=== PATIENT | male | born 1955 | race Caucasian/White ===

== ENCOUNTER → 2019-05-28 07:22 | Outpatient (CLI) | payer SELFPAY ==
[2019-05-28 08:10] LABS: Add Manual Diff / Slide Review NO; Basophils Absolute Auto 0 /uL (0-100); Basophils Percent Auto 0.5 % (0-2); Eosinophils Absolute Auto 200 /uL (0-450); Eosinophils Percent Auto 4.6 % (2-4); Hematocrit 47.1 % (41-53); Hemoglobin 16.2 g/dL (13.5-17.5); Lymphocytes Absolute Auto 1400 /uL (1100-4500); Lymphocytes Percent Auto 28.5 % (25-40); Mean Corpuscular HGB Conc 34.5 % (30-36); Mean Corpuscular Hemoglobin 31.7 PG (26-34); Mean Corpuscular Volume 91.9 fL (80-100); Monocytes Absolute Auto 500 /uL (0-900); Monocytes Percent Auto 10.9 % (3-14); Neutrophils Absolute Auto 2700 /uL (1500-7000); Neutrophils Percent Auto 55.5 % (50-75); Platelet Count 225 X10^3/uL (150-400); Red Blood Cell Count 5.12 X10^6/uL (4.5-5.9); Red Cell Distribution Width 12.9 % (11.6-14.8); White Blood Cell Count 4.8 X10^3/uL (4.5-11.0)
[2019-05-28 09:01] LABS: Alanine Aminotransferase 37 IU/L (21-72); Albumin 4.5 g/dL (3.5-5.0); Alkaline Phosphatase 62 U/L (38-126); Aspartate Aminotransferase 30 IU/L (17-59); BUN Creatinine Ratio 14.6 (6-22); Bilirubin Total 0.8 mg/dL (0.2-1.3); Blood Urea Nitrogen 19 mg/dL (9-20); Calcium 9.7 mg/dL (8.4-10.2); Carbon Dioxide 29 mmol/L (22-32); Chloride 102 mmol/L (98-107); Estimated Glomerular Filt Rate 55.9 mL/min (>60); Globulin 2.3 g/dL (1.7-4.1); Glucose 104 mg/dL (80-110); HEMOLYSIS < 15 (0-50); Potassium 4.7 mmol/L (3.4-5.1); Sodium 141 mmol/L (137-145); Total Protein 6.8 g/dL (6.3-8.2)
[2019-05-28 09:30] LABS: Prostate Specific Antigen Scrn 1.49 ng/mL (0.1-4.0)
== END ==
PROVIDERS: PCP Family Medicine; Visit Provider Family Medicine
DX: Z00.00 Encounter for general adult medical examination without abnormal findings (principal)
CPT/HCPCS: 36415; 80053; 85025; G0103

== ENCOUNTER → 2020-12-22 08:44 | Outpatient (CLI) | payer OTHER, SELFPAY ==
[2020-12-22] MEDS: COVID-19 VACC #1, MRNA(MOD) 100 MCG/0.5 ML VIAL IM (08:49)
== END ==
PROVIDERS: PCP Family Medicine; Visit Provider Internal Medicine
DX: Z23 Encounter for immunization (principal)
CPT/HCPCS: 0011A; 91301

== ENCOUNTER → 2021-01-19 08:00 | Outpatient (CLI) | payer OTHER, SELFPAY ==
[2021-01-19] MEDS: COVID-19 VACC #2, MRNA(MOD) 100 MCG/0.5 ML VIAL IM (08:05)
== END ==
PROVIDERS: PCP Family Medicine; Visit Provider Internal Medicine
DX: Z23 Encounter for immunization (principal)
CPT/HCPCS: 0012A; 91301

== ENCOUNTER → 2021-12-19 07:01 | Outpatient (CLI) | payer MEDICARE, OTHER, SELFPAY ==
[2021-12-19 09:45] LABS: Add Manual Diff / Slide Review NO; Basophils Absolute Auto 0 /uL (0-100); Basophils Percent Auto 0.7 % (0-2); Eosinophils Absolute Auto 100 /uL (0-450); Eosinophils Percent Auto 2.9 % (2-4); Hematocrit 46.7 % (41-53); Hemoglobin 16.3 g/dL (13.5-17.5); Lymphocytes Absolute Auto 1400 /uL (1100-4500); Lymphocytes Percent Auto 32.5 % (25-40); Mean Corpuscular HGB Conc 34.9 % (30-36); Mean Corpuscular Volume 88.8 fL (80-100); Monocytes Absolute Auto 500 /uL (0-900); Monocytes Percent Auto 10.6 % (3-14); Neutrophils Absolute Auto 2300 /uL (1500-7000); Neutrophils Percent Auto 53.3 % (50-75); Platelet Count 184 X10^3/uL (150-400); Red Blood Cell Count 5.26 X10^6/uL (4.5-5.9); Red Cell Distribution Width 13.3 % (11.6-14.8); White Blood Cell Count 4.4 X10^3/uL (4.5-11.0)
[2021-12-19 10:15] LABS: Alanine Aminotransferase 25 IU/L (<50); Albumin 4.4 g/dL (3.5-5.0); Albumin Globulin Ratio 1.8 (1.0-2.8); Alkaline Phosphatase 59 U/L (38-126); Aspartate Aminotransferase 27 IU/L (17-59); BUN Creatinine Ratio 15.7 (6-22); Bilirubin Total 0.9 mg/dL (0.2-1.3); Blood Urea Nitrogen 19 mg/dL (9-20); Calcium 9.3 mg/dL (8.4-10.2); Carbon Dioxide 28 mmol/L (22-32); Chloride 105 mmol/L (98-107); Cholesterol 204 mg/dL (140-199); Estimated Glomerular Filt Rate > 60.0 mL/min (>60); Globulin 2.5 g/dL (1.7-4.1); Glucose 108 mg/dL (80-110); HDL Cholesterol 51 mg/dL (40-60); HEMOLYSIS < 15 (0-50); LDL Cholesterol Calculated 138 mg/dL (<100); Potassium 4.2 mmol/L (3.4-5.1); Sodium 138 mmol/L (137-145); Total Protein 6.9 g/dL (6.3-8.2); Triglycerides 77 mg/dL (35-150)
[2021-12-19 10:45] LABS: Prostate Specific Antigen Scrn 1.91 ng/mL (0.1-4.0)
[2021-12-22 15:25] LABS: Percent Free Testosterone 3.12 % (1.50-4.20); Testosterone Total 317.3 ng/dL (264.0-916.0)
== END ==
PROVIDERS: PCP Family Medicine; Referring Provider Family Medicine; Visit Provider Family Medicine
DX: E78.2 Mixed hyperlipidemia (principal); Z12.5 Encounter for screening for malignant neoplasm of prostate; N52.9 Male erectile dysfunction, unspecified
CPT/HCPCS: 36415; 80053; 80061; 84402; 84403; 85025; G0103

== ENCOUNTER → 2022-03-09 08:14 | Outpatient (CLI) | payer MEDICARE, OTHER, SELFPAY ==
[2022-03-09 09:49] LABS: Cholesterol 167 mg/dL (140-199); HDL Cholesterol 50 mg/dL (40-60); LDL Cholesterol Calculated 106 mg/dL (<100); Triglycerides 53 mg/dL (35-150)
== END ==
PROVIDERS: PCP Family Medicine; Referring Provider Family Medicine; Visit Provider Family Medicine
DX: E78.2 Mixed hyperlipidemia (principal)
CPT/HCPCS: 36415; 80061

== ENCOUNTER → 2023-06-21 08:12 | Outpatient (CLI) | payer MEDICARE, OTHER, SELFPAY ==
--- NOTE | 2023-06-21 08:13 | DI.US.S_ITS ---
PROCEDURE: US ABDOMEN COMPLETE INDICATIONS: LEFT MID ABDOMINAL PAIN TECHNIQUE: Real-time scanning was performed of the abdominal and retroperitoneal organs, with image documentation. COMPARISON: None. FINDINGS: Liver: Liver is normal in size and show increased liver parenchymal echotexture. Gallbladder: Gallbladder is within normal limits. Biliary ducts: Intrahepatic bile ducts are non-dilated. Extrahepatic bile duct caliber measures 5.1 mm. Normal is 6-7 mm or less in diameter, or 10 mm or less post-cholecystectomy. Pancreas: Visualized portions of the pancreas are sonographically normal. Spleen: Spleen is normal in size and homogeneous in echotexture. Kidneys: Kidneys are normal in size and echotexture. Right kidney measures 9.8 cm long; left kidney measures 11.2 cm long. Slightly lobulated left renal contour is seen. No hydronephrosis or nephrolithiasis. No solid masses. Aorta: Not well seen. Iliacs: Not well seen. IVC: Intrahepatic inferior vena cava is patent. Miscellaneous: No free abdominal fluid. Incidentally noted of possible fat containing partially reducible ventral hernia inferior to the umbilicus with the neck measures 7 x 8 mm in size. IMPRESSION: 1. Hepatic steatosis, no discrete hepatic lesion. 2. Incidentally noted of small in for umbilical ventral hernia containing fat only and is partially reducible. 3. Rest of the exam is unremarkable. Dictated by: Juan Huynh M.D. on 06/21/2023 at 9:39 Approved by: Juan Huynh M.D. on 06/21/2023 at 9:47
== END ==
PROVIDERS: PCP Family Medicine; Referring Provider Nurse Practitioner Family; Visit Provider Nurse Practitioner Family
DX: K76.0 Fatty (change of) liver, not elsewhere classified (principal); K42.9 Umbilical hernia without obstruction or gangrene; R10.12 Left upper quadrant pain
CPT/HCPCS: 76700

== ENCOUNTER → 2023-10-07 08:05 | Outpatient (CLI) | payer MEDICARE, OTHER, SELFPAY ==
[2023-10-07 09:54] LABS: Alanine Aminotransferase 40 IU/L (<50); Albumin 4.2 g/dL (3.5-5.0); Albumin Globulin Ratio 1.8 (1.0-2.8); Alkaline Phosphatase 56 U/L (38-126); Aspartate Aminotransferase 30 IU/L (17-59); BUN Creatinine Ratio 17.4 (6-22); Blood Urea Nitrogen 23 mg/dL (9-20); Calcium 9.2 mg/dL (8.4-10.2); Carbon Dioxide 25 mmol/L (22-32); Chloride 104 mmol/L (98-107); Cholesterol 183 mg/dL (140-199); Estimated Glomerular Filt Rate 59 mL/min (>60); Globulin 2.4 g/dL (1.7-4.1); Glucose 110 mg/dL (80-110); HDL Cholesterol 55 mg/dL (40-60); HEMOLYSIS < 15 (0-50); LDL Cholesterol Calculated 108 mg/dL (<100); Potassium 4.1 mmol/L (3.4-5.1); Sodium 135 mmol/L (137-145); Total Protein 6.6 g/dL (6.3-8.2); Triglycerides 102 mg/dL (35-150)
[2023-10-07 10:19] LABS: Prostate Specific Antigen Scrn 2.01 ng/mL (0.1-4.0)
[2023-10-07 10:27] LABS: Microalbumi Creatinin Ratio Ur 3.8 ug/mg CR (<30); Microalbumin Urine Random 0.7 mg/dL (0-1.6)
[2023-10-07 10:37] LABS: Appearance Urine UA CLEAR; Bilirubin Urine UA NEGATIVE (NEGATIVE); Color Urine UA YELLOW; Glucose Urine UA NEGATIVE (Negative); Ketones Urine UA NEGATIVE (NEGATIVE); Leukocyte Esterase Urine UA NEGATIVE (NEGATIVE); Nitrite Urine UA NEGATIVE (Negative); Occult Blood Urine UA NEGATIVE (Negative); Protein Urine UA NEGATIVE (Negative); Specific Gravity Urine UA 1.015 (1.000-1.035); Urobilinogen Urine UA 0.2 E.U./dL (0.2)
[2023-10-07 10:51] LABS: Amorphous Sediment Urine 2+; Bacteria Urine None Seen; Culture Indicated Urine Cult Not Indicated; Mucus Urine 1+ (Negative); RBC Urine None Seen (0-5/HPF); Squamous Epithelial Cell Urine None Seen (0-5/HPF); WBC Urine 0-1/HPF (0-5/HPF)
== END ==
PROVIDERS: PCP Family Medicine; Referring Provider Family Medicine; Visit Provider Family Medicine
DX: Z12.5 Encounter for screening for malignant neoplasm of prostate (principal); I10 Essential (primary) hypertension; E78.2 Mixed hyperlipidemia; R35.0 Frequency of micturition
CPT/HCPCS: 36415; 80053; 80061; 81001; 82043; 82570; G0103

== ENCOUNTER 2023-10-15 06:47 | Day surgery (SDC) | payer MEDICARE, OTHER, SELFPAY ==
--- NOTE | 2023-10-15 | PATH_ITS ---
[facility] Accession Number: [id number] No. of containers..01 Tissue . 01 Material submitted: . colon - ASCENDING COLON POLYP . 01 Diagnosis: Descending Colon Polyp: Tubular adenoma. MRV 10/24/2023 1521 Local . 01 Electronically signed: . Anastasiia James MD, Pathologist NPI- [id number] . 01 Gross description: . The specimen is received in formalin labeled with the patient's name, , and ascending colon polyp, consists of a single [place] soft tissue fragment measuring 0.2 cm in greatest dimension. Submitted entirely in cassette A1. ([id number]) /MRV 10/16/2023 1809 Local . 01 Pathologist provided ICD-10: K63.5 . 01 CPT . 921257 Specimen Comment: A courtesy copy of this report has been sent to [phone] Performed at: 01 [facility] [address] [place] [address], [place], [place] [id number] MD Mathieu Reddy MD Phone: [phone]
[2023-10-15] MEDS: LACTATED RINGERS 1,000 ML 42 ML IV (07:09)
[2023-10-15 07:17] VITALS: BP 152/94; PULSE 69; RESP 16; TEMP 36.2; O2SAT 100; BMI 25.7
--- NOTE | 2023-10-15 07:42 | P.HP_ITS ---
History of Present Illness History of Present Illness Date Patient Seen: 10/15/23 Time Patient Seen: 07:43 Chief complaint: Colonoscopy Narrative: 68-year-old man here for screening colonoscopy. Last colonoscopy 14 years ago normal. No family history of intestinal malignancy. No abdominal concerns today including but not limited to abdominal pain, unintentional weight loss blood per rectum. [facility], [facility] Medical History HTN (hypertension) Wears glasses Shoulder pain Scoliosis Neutropenia (~2019) Myelofibrosis Plantar wart of right foot Erectile dysfunction Surgical History Anesthesia History of nasal surgery History of right hip replacement (~2016) Family History Father Cancer History of heart disease Hypertension Mother Cancer Grandfather Stroke Grandmother Stroke Social History household members: spouse Smoking Status: Never smoker alcohol intake: current substance use type: does not use Meds Home Medications and Allergies Home Medications Medication Instructions Recorded Confirmed Type ASPIRIN (Aspirin) 81 mg PO Q DAY ##0 12/09/11 10/15/23 History Fish Oil (#FISH OIL) 1,000 iu PO Q DAY ##0 12/09/11 10/15/23 History MULTIVITAMIN (#MULTIPLE VITAMINS) 1 cap PO Q DAY ##0 12/09/11 10/15/23 History tamsulosin 0.4 mg capsule 0.4 mg PO BEDTIME #30 caps 10/04/23 10/15/23 Rx Allergies Allergy/AdvReac Type Severity Reaction Status Date / Time No Known Drug Allergies Allergy Verified 10/15/23 07:14 Exam Vital Signs (past 8 hours): - 10/15/23 07:17 Temperature 97.1 F L Pulse Rate 69 Respiratory Rate 16 Blood Pressure 152/94 H Pulse Oximetry 100 Oxygen Delivery Method Room Air Oxygen Delivery Method Room Air Narrative Exam Narrative: General adult man alert oriented no acute distress Abdomen soft nontender nondistended Assessment & Plan Assessment & Plan narrative: The patient requires colorectal screening and colonoscopy is recommended. Technical details were discussed. Risks, benefits, alternatives explained. Risks including but not limited to myocardial infarction, aspiration, bleeding, pain, missed lesion, incomplete examination, need for further radiographic studies, colonic perforation, and need for major abdominal surgery were discussed. All questions were answered to their satisfaction, and they are in agreement with this plan.
[2023-10-15 08:06] VITALS: BP 135/85; PULSE 77; RESP 23; TEMP 36.7; O2SAT 98
[2023-10-15 08:10] VITALS: BP 138/90; PULSE 68; RESP 16; O2SAT 99
--- NOTE | 2023-10-15 08:10 | P.OP.COLON_ITS ---
Operative Date/Time/Diagnoses Date of procedure: 10/15/23 Time of procedure: 08:10 Pre-op diagnosis: Colorectal screening Post-op diagnosis: other (Colonic polyp x1) Procedure & Clinicians Study performed: Colonoscopy with polypectomy Same procedure as scheduled: Yes Indications: Colorectal screening Surgeon: Brian Hubbard Procedure Notes Procedure in detail: The history and physical was performed/updated and the patient is ASA class is 2. The procedure was discussed in detail with the patient. Potential risks complications including infection, bleeding, missed diagnosis, perforation, need for surgery, and were explained. Their questions were answered and informed consent was obtained. Patient was brought to the procedure room and placed standard monitoring equipment. The patient's vital signs were monitored continuously throughout the entire procedure. Prior to starting time-out was performed. The patient was placed in the left lateral recumbent position. Procedural sedation was administered by anesthesia. Examination began with a thorough inspection of the perianal area there was no evidence of fissures, fistulae, external hemorrhoids or cutaneous malignancy. The colonoscopy scope was then placed into the anal canal and was advanced to the cecum, which was identified by the ileocecal valve, the appendiceal orifice and the confluence of the taenia. The scope was then slowly withdrawn examining colon thoroughly in all directions, irrigating it of any residual stool. The scope was retroflexed within the rectum The patient tolerated the procedure well. They will be discharged once criteria are met. The prep was of good/excellent quality. The withdrawl time was 7 minutes. FINDINGS * Ascending colon polyp 3 mm removed with biopsy forceps * Sigmoid mild diverticulosis * Grade 1 internal hemorrhoids Specimen(s): other (Ascending colon polyp) Impression: Colonic polyp x1 Diverticulosis Post-procedure Recommendations: High fiber diet Plan for aftercare: Follow-up dependent on pathology findings likely 5 years. Disposition: same day surgery
[2023-10-15 08:15] VITALS: BP 149/88; PULSE 68; RESP 15; O2SAT 99
[2023-10-15 08:30] VITALS: BP 145/92; PULSE 73; RESP 12; TEMP 36.1; O2SAT 98
== END 2023-10-15 08:40 | disposition home or self-care (01) ==
PROVIDERS: PCP Family Medicine; Referring Provider Surgery; Visit Provider Surgery
PROC: 0DJD8ZZ Inspection of Lower Intestinal Tract, Via Natural or Artificial Opening Endoscopic (ICD-10-PCS; CPT 45378; principal; 2023-10-15 07:45)
DX: Z12.11 Encounter for screening for malignant neoplasm of colon (principal); K57.30 Diverticulosis of large intestine without perforation or abscess without bleeding; K64.0 First degree hemorrhoids; D12.4 Benign neoplasm of descending colon
CPT/HCPCS: 45380; J2704

== ENCOUNTER → 2024-02-14 09:54 | Outpatient (CLI) | payer MEDICARE, OTHER, SELFPAY ==
[2024-02-14 10:27] LABS: Appearance Urine UA CLEAR; Bilirubin Urine UA NEGATIVE (NEGATIVE); Color Urine UA YELLOW; Glucose Urine UA NEGATIVE (Negative); Ketones Urine UA NEGATIVE (NEGATIVE); Leukocyte Esterase Urine UA NEGATIVE (NEGATIVE); Nitrite Urine UA NEGATIVE (Negative); Occult Blood Urine UA NEGATIVE (Negative); Protein Urine UA NEGATIVE (Negative); Urobilinogen Urine UA 0.2 E.U./dL (0.2); pH Urine UA 7.5 (4.5-8.0)
[2024-02-14 10:37] LABS: Bacteria Urine None Seen; Culture Indicated Urine Cult Not Indicated; RBC Urine 0-1/HPF (0-5/HPF); Squamous Epithelial Cell Urine 0-1 /HPF (0-5/HPF); Urine Volume 10mL (spun); WBC Urine 0-1/HPF (0-5/HPF)
== END ==
PROVIDERS: PCP Family Medicine; Visit Provider Nurse Practitioner Family
DX: R39.198 Other difficulties with micturition (principal)
CPT/HCPCS: 81001

== ENCOUNTER → 2024-08-19 07:27 | Outpatient (CLI) | payer MEDICARE, OTHER, SELFPAY ==
[2024-08-19 07:58] LABS: Hematocrit 44.5 % (41-53); Hemoglobin 15.3 g/dL (13.5-17.5); Mean Corpuscular HGB Conc 34.4 % (30-36); Mean Corpuscular Hemoglobin 31.4 PG (26-34); Mean Corpuscular Volume 91.3 fL (80-100); Platelet Count 197 X10^3/uL (150-400); Red Blood Cell Count 4.87 X10^6/uL (4.5-5.9); Red Cell Distribution Width 13.5 % (11.6-14.8); White Blood Cell Count 4.9 X10^3/uL (4.5-11.0)
[2024-08-19 08:19] LABS: Alanine Aminotransferase 23 IU/L (<50); Albumin 4.1 g/dL (3.5-5.0); Albumin Globulin Ratio 1.8 (1.0-2.8); Alkaline Phosphatase 60 U/L (38-126); Aspartate Aminotransferase 26 IU/L (17-59); Bilirubin Total 0.7 mg/dL (0.2-1.3); Blood Urea Nitrogen 26 mg/dL (9-20); Calcium 9.2 mg/dL (8.4-10.2); Carbon Dioxide 26 mmol/L (22-32); Chloride 104 mmol/L (98-107); Cholesterol 167 mg/dL (140-199); Estimated Glomerular Filt Rate 57 mL/min (>60); Globulin 2.3 g/dL (1.7-4.1); Glucose 106 mg/dL (80-110); HDL Cholesterol 54 mg/dL (40-60); HEMOLYSIS < 15 (0-50); LDL Cholesterol Calculated 100 mg/dL (<100); Potassium 4.3 mmol/L (3.4-5.1); Sodium 135 mmol/L (137-145); Total Protein 6.4 g/dL (6.3-8.2); Triglycerides 63 mg/dL (35-150)
[2024-08-19 08:51] LABS: Prostate Specific Antigen Scrn 2.69 ng/mL (0.1-4.0)
[2024-08-19 08:53] LABS: TSH w/ Reflex to FT4 1.39 uIU/mL (0.47-4.68)
== END ==
PROVIDERS: PCP Family Medicine; Referring Provider Family Medicine; Visit Provider Family Medicine
DX: I10 Essential (primary) hypertension (principal); Z12.5 Encounter for screening for malignant neoplasm of prostate; E78.2 Mixed hyperlipidemia
CPT/HCPCS: 36415; 80053; 80061; 84443; 85027; G0103

== ENCOUNTER → 2024-12-02 07:21 | Outpatient (CLI) | payer MEDICARE, OTHER, SELFPAY ==
[2024-12-02 08:48] LABS: Creatinine Urine Random 96.84 mg/dL
[2024-12-02 08:54] LABS: Microalbumin Urine Random < 0.6 mg/dL (0-1.6)
== END ==
PROVIDERS: PCP Family Medicine; Referring Provider Family Medicine; Visit Provider Family Medicine
DX: N18.30 Chronic kidney disease, stage 3 unspecified (principal)
CPT/HCPCS: 82043; 82570

== ENCOUNTER → 2025-01-09 06:58 | Outpatient (CLI) | payer MEDICARE, OTHER, SELFPAY ==
--- NOTE | 2025-01-09 07:02 | DI.MRI.S_ITS ---
PROCEDURE: MR SHOULDER RT WO CON INDICATIONS: acute rt shoulder pain TECHNIQUE: Noncontrast oblique coronal T2 fast spin echo with fat saturation, oblique sagittal T1 spin echo and T2 fast spin echo with fat saturation, axial T1 spin echo and T2 fast spin echo with fat saturation through the shoulder. COMPARISON: None. FINDINGS: Image quality: Excellent. Bones: Insertional cysts are present at the posterior-lateral humeral head (6/11). The bone marrow signal is otherwise normal. There is no acute fracture or dislocation. Acromioclavicular joint: Moderate osteoarthritis. There is a type 2 acromion. Glenohumeral joint: Mild osteoarthritis. There is a trace joint effusion. Labrum: Superimposed on circumferential fraying, there is a labral tear extending from the 11 o'clock position to the 3 o'clock position (09/01-16; 9 o'clock is anterior). There is a small posterior-inferior paralabral cyst (6/18), likely related to an additional posterior labral tear. Cartilage: There is mild diffuse thinning of the glenohumeral articular cartilage (8/10). Subacromial-subdeltoid bursa: There is a small amount of fluid in the subacromial-subdeltoid bursa. Rotator cuff: Superimposed on mild tendinosis, there is a partial width, partial-thickness, articular sided tear of the supraspinatus at the footprint (10/5). There is moderate infraspinatus tendinosis. There is moderate subscapularis tendinosis. The teres minor tendon is intact. Long head of biceps tendon: The long head of the biceps tendon is present within the bicipital groove and intact. Musculature: There is intramuscular tearing of the teres minor at the distal muscle belly (/14). Muscle bulk is preserved without evidence of denervation or fatty atrophy. Inferior glenohumeral ligaments/Axillary pouch: The axillary pouch is mildly thickened with low signal and pericapsular edema. Coracoclavicular and coracoacromial ligaments: The coracoclavicular and coracoacromial ligaments are normal. Other: Loss of the fat signal at the rotator interval with mild thickening of the coracohumeral ligament (/). There is high-grade disruption of the posterior-inferior joint capsule at the humeral attachment site (). IMPRESSION: 1. Partial width, partial-thickness intramuscular tearing of the teres minor at the distal muscle belly without tendinous avulsion, and associated high-grade disruption of the posterior-inferior joint capsule. Please correlate for a history of recent posterior shoulder subluxation. 2. Superior labrum anterior-posterior tear with likely additional posterior labral tearing. 3. Partial width, partial-thickness, articular sided supraspinatus footprint tear, superimposed on mild tendinosis. 4. Moderate infraspinatus tendinosis. 5. Moderate subscapularis tendinosis. 6. Moderate acromioclavicular osteoarthritis. 7. Mild glenohumeral osteoarthritis. 8. Mild subacromial-subdeltoid bursitis. 9. Findings suggestive of adhesive capsulitis. Dictated by: Alfredo Young M.D. on 01/09/2025 at 18:36 Approved by: Alfredo Young M.D. on 01/09/2025 at 18:49
== END ==
LOC: MRI 06:59
PROVIDERS: PCP Family Medicine; Referring Provider Family Medicine; Visit Provider Family Medicine
DX: M75.111 Incomplete rotator cuff tear or rupture of right shoulder, not specified as traumatic (principal); S43.431A Superior glenoid labrum lesion of right shoulder, initial encounter; M19.011 Primary osteoarthritis, right shoulder; M75.51 Bursitis of right shoulder; M25.511 Pain in right shoulder; G89.11 Acute pain due to trauma
CPT/HCPCS: 73221

== ENCOUNTER → 2025-03-02 07:08 | Outpatient (CLI) | payer MEDICARE, OTHER, SELFPAY ==
[2025-03-02 08:37] LABS: BUN Creatinine Ratio 20.6 (6-22); Blood Urea Nitrogen 27 mg/dL (9-20); Estimated Glomerular Filt Rate 59 mL/min (>60)
== END ==
PROVIDERS: PCP Family Medicine; Referring Provider Family Medicine; Visit Provider Family Medicine
DX: N18.30 Chronic kidney disease, stage 3 unspecified (principal)
CPT/HCPCS: 36415; 82565; 84520

== ENCOUNTER → 2025-09-09 07:14 | Outpatient (CLI) | payer MEDICARE, OTHER, SELFPAY ==
[2025-09-09 07:54] LABS: Add Manual Diff / Slide Review NO; Hematocrit 45.1 % (41-53); Hemoglobin 15.4 g/dL (13.5-17.5); Lymphocytes Absolute Auto 1300 /uL (1100-4500); Mean Corpuscular HGB Conc 34.2 % (30-36); Mean Corpuscular Hemoglobin 30.7 PG (26-34); Mean Corpuscular Volume 89.9 fL (80-100); Platelet Count 205 X10^3/uL (150-400)
[2025-09-09 08:13] LABS: Alanine Aminotransferase 18 IU/L (<50); Albumin 4.4 g/dL (3.5-5.0); Albumin Globulin Ratio 1.6 (1.0-2.8); Alkaline Phosphatase 68 U/L (38-126); Blood Urea Nitrogen 26 mg/dL (9-20); Calcium 9.2 mg/dL (8.4-10.2); Carbon Dioxide 24 mmol/L (22-32); Chloride 103 mmol/L (98-107); Cholesterol 178 mg/dL (140-199); Estimated Glomerular Filt Rate 56 mL/min (>60); Globulin 2.7 g/dL (1.7-4.1); Glucose 103 mg/dL (70-99); HDL Cholesterol 63 mg/dL (40-60); HEMOLYSIS < 15 (0-50); Potassium 4.1 mmol/L (3.4-5.1); Sodium 136 mmol/L (137-145); Total Protein 7.1 g/dL (6.3-8.2); Triglycerides 70 mg/dL (35-150)
== END ==
PROVIDERS: PCP Family Medicine; Referring Provider Family Medicine; Visit Provider Family Medicine
DX: N18.31 Chronic kidney disease, stage 3a (principal); Z12.5 Encounter for screening for malignant neoplasm of prostate; I10 Essential (primary) hypertension; D70.9 Neutropenia, unspecified; E78.2 Mixed hyperlipidemia
CPT/HCPCS: 36415; 80053; 80061; 85025; G0103